=== PATIENT | male | born 1965 ===

== ENCOUNTER 2017-06-20 15:19 | Emergency (ER) | payer BC ==
[2017-06-20 16:16] VITALS: BP 152/84
--- NOTE | 2017-06-20 16:47 | RAD ---
INDICATION: Right knee pain COMPARISON: None TECHNIQUE: AP, lateral, tunnel, and sunrise views were obtained. FINDINGS: There is moderate patellofemoral narrowing with bony spur formation. There is spurring tibial spines. The medial and lateral joint spaces are preserved. There are probable multiple loose bodies. IMPRESSION: OSTEOARTHRITIS PREDOMINANTLY ABOUT THE PATELLOFEMORAL JOINT SPACE COMPARTMENT. SUSPECT MULTIPLE LOOSE BODIES.
--- NOTE | 2017-06-20 17:13 | UC ---
Throat Pain/Nasal James HPI - HPI Summary HPI Summary: 1) COUGH & SINUS CONGESTION FOR TWO WEEKS. NO FEVER. 2) THREE DAYS OF RIGHT KNEE PAIN NO KNOWN TRAUMA. NO SWELLING OR REDNESS. NO HX OF GOUT. - History of Current Complaint Chief Complaint: UCRespiratory Stated Complaint: UPPER RESPIRATORY COMPLAINT Time Seen by Provider: 06/20/17 16:08 Hx Obtained From: Patient Onset/Duration: Gradual Onset, Lasting Weeks, Still Present Severity: Moderate Associated Signs & Symptoms: Positive: Hoarseness, Sinus Discomfort, Other - RIGHT KNEE PAIN - Epiglottits Risk Factors Epiglottis Risk Factors: Negative - Allergies/Home Medications Allergies/Adverse Reactions: Allergies Allergy/AdvReac Type Severity Reaction Status Date / Time No Known Allergies Allergy Verified 06/20/17 16:16 Home Medications: Home Medications Cetirizine* [ZyrTEC 10 MG TAB*] 10 mg PO DAILY 06/20/17 [History Confirmed 06/20] Dextromethorphan-Phenylephrine [Day Time Multi-Symptom Co 10-5-325 mg] 1 cap PO DAILY 06/20/17 [History Confirmed 06/20/17] Fluticasone NASAL SPRAY 50MCG* [Flonase NASAL SPRAY 50MCG*] 2 spray BOTH NARES DAILY 06/20/17 [History Confirmed 06/20/17] PMH/Surg Hx/FS Hx/Imm Hx Previously Healthy: Yes - Surgical History Surgical History: Yes Surgery Procedure, Year, and Place: hernia repair as - Family History Known Family History: Negative: Other - NO JOINT LAXITY - Social History Occupation: Employed Full-time Lives: With Family Alcohol Use: Occasionally Substance Use Type: None Smoking Status (MU): Heavy Every Day Tobacco Smoker Type: Cigarettes Amount Used/How Often: 1/2 ppd Review of Systems Constitutional: Negative Skin: Negative Eyes: Negative ENT: Nasal Discharge, Sinus Congestion, Sinus Pain/Tenderness Respiratory: Cough Cardiovascular: Negative Gastrointestinal: Negative Genitourinary: Negative Motor: Negative Neurovascular: Negative Musculoskeletal: Arthralgia - RIGHT KNEE, Myalgia - RIGHT KNEE Neurological: Negative Psychological: Negative Is Patient Immunocompromised?: No All Other Systems Reviewed And Are Negative: Yes Physical Exam Triage Information Reviewed: Yes Appearance: Well-Appearing, No Pain Distress, Well-Nourished Vital Signs: Initial Vital Signs Temp 98 F 12/04/17 16:12 Pulse 82 06/20/17 16:12 Resp 18 06/20/17 16:12 BP 152/84 06/20/17 16:12 Pulse Ox 98 06/20/17 16:12 Vital Signs Reviewed: Yes Eye Exam: Normal ENT: Positive: Hearing grossly normal, Nasal congestion, Nasal drainage, TM bulging, TM dull Dental Exam: Normal Neck exam: Normal Neck: Positive: Supple, Nontender, No Lymphadenopathy Respiratory Exam: Normal Respiratory: Positive: Chest non-tender, Lungs clear, Normal breath sounds, No respiratory distress, No accessory muscle use Cardiovascular Exam: Normal Cardiovascular: Positive: RRR, No Murmur, Pulses Normal, Brisk Capillary Refill Abdominal Exam: Normal Musculoskeletal: Positive: Strength Intact, ROM Intact, No Edema, Other: - RIGHT KNEE TENDERNESS WITH PALPATION Neurological Exam: Normal Psychological Exam: Normal Skin Exam: Normal Throat Pain/Nasal Course/Dx - Differential Dx/Diagnosis Differential Diagnosis/HQI/PQRI: Pharyngitis, Sinusitis Provider Diagnoses: SINUSITIS; BRONCHITIS; RIGHT KNEE OSTEOARTHRITIS OF PATELLOFEMORAL JOINT SPACE COMPARTMENT WITH SUSPECTED LOOSE BODIES Discharge - Discharge Plan Condition: Stable Disposition: HOME Prescriptions: Amoxicillin/Clavulanate TAB* [Augmentin TAB 875*] 875 mg PO BID #20 tab Benzonatate CAP* [Tessalon 100 MG CAP*] 100 mg PO TID PRN #15 cap PRN Reason: Cough Patient Education Materials: Sinusitis (ED), Osteoarthritis (ED), Acute Bronchitis (ED), Knee Pain (ED) Referrals: [facility] [[place]] Griffin Walden MD [Medical Doctor] -
== END 2017-06-20 17:17 | disposition home or self-care (01) ==
LOC: UCCORT 15:19
DX: J32.9 Chronic sinusitis, unspecified (principal); J40 Bronchitis, not specified as acute or chronic; M17.11 Unilateral primary osteoarthritis, right knee; F17.210 Nicotine dependence, cigarettes, uncomplicated
CPT/HCPCS: 99202; G0463